=== PATIENT | female | born 1970 | race Caucasian/White ===

== ENCOUNTER 2024-10-31 09:45 | Day surgery (SDC) | payer MEDICAID, SELFPAY ==
--- NOTE | 2024-10-30 19:30 | HPE_ITS ---
Assessment and Plan Assessment and plan (1) Nuclear age-related cataract, left eye: Status: Acute Assessment and plan: Assessment: Visually significant cataract, left eye. Plan: Cataract extraction with lens implantation, left eye, followed by right eye (2) Cortical age-related cataract, left eye: Status: Acute Assessment and plan: Assessment: Visually significant cataract, left eye. Plan: Cataract extraction with lens implantation, left eye, followed by right eye (3) Nuclear age-related cataract, right eye: Status: Acute Assessment and plan: Assessment: Visually significant cataract, right eye. Plan: Cataract extraction with lens implantation, right eye (4) Cortical age-related cataract, right eye: Status: Acute Assessment and plan: Assessment: Visually significant cataract, right eye. Plan: Cataract extraction with lens implantation, right eye History of Present Illness History of Present Illness Chief Complaint: Decreased vision both eyes Narrative: The patient is a 54-year-old lady who presented with complaints of progressive decreased vision in both eyes at both distance and near. She is unable to see road signs and has significant glare from oncoming headlights at night. 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 Review of Systems All systems reviewed & are unremarkable except as noted in HPI and below PFSH All Active Problems Cortical age-related cataract, right eye (Acute) Nuclear age-related cataract, right eye (Acute) Cortical age-related cataract, left eye (Acute) Nuclear age-related cataract, left eye (Acute) Medical History Conductive hearing loss, external ear Impacted cerumen, bilateral Asthma Hyperlipidemia Depression with anxiety Plaque psoriasis Tobacco abuse Allergic rhinitis H/O chronic otitis media in childhood Surgical History History of bilateral tubal ligation H/O dilation and curettage S/P tonsillectomy and adenoidectomy Family History Father Cancer metastatic lung Mother Tobacco abuse Obesity Thyroid disease Migraines Osteoarthritis Brother Gout Son Chronic otitis media Paternal Uncle Cancer stomach Gout Maternal Uncle Diabetes Heart disease Social History Smoking/Tobacco Use Status: Current every day Tobacco Type: cigarettes Smoking packs per day: 1 Smoking cigarettes per day: 20.0 Smoking risk assessment performed?: Yes Alcohol Intake: current Alcohol Intake frequency: holidays/special occasions only Drug use: Never Substance use type: does not use Household members: spouse and children Housing: house current occupation: homemaker Pets and animals: Yes Pets and animals: cat(s) and dog(s) What is your relationship status?: Panel score (0-1 are the most socially isolated patients): 1 What type of physical activity do you participate in: walking Duration: < 15 minutes/day Frequency: daily Do you feel safe at home: Yes Do you feel safe in your relationship?: Yes Meds Allergies and Home Medications Allergies Allergy/AdvReac Type Severity Reaction Status Date / Time amoxicillin (From Augmentin) Allergy Unknown Verified 10/29/24 11:45 clavulanic acid (From Allergy Unknown Verified 10/29/24 11:45 Augmentin) sulfamethoxazole (From Allergy Unknown Verified 10/29/24 11:45 Bactrim) trimethoprim (From Bactrim) Allergy Unknown Verified 10/29/24 11:45 Seasonal Allergies Allergy Unknown Uncoded 10/29/24 11:45 Home Medications ?Medication ?Instructions ?Recorded ?Confirmed ?Type atorvastatin 10 mg tablet 10 mg PO DAILY 06/08/21 10/31/24 History citalopram 40 mg tablet 20 mg PO DAILY 06/08/21 10/31/24 History fexofenadine 180 mg tablet 180 mg PO DAILY 06/08/21 10/31/24 History (Solange Allergy) secukinumab 150 mg/mL subcutaneous 300 mg subcut Q4W 06/14/21 10/31/24 History syringe (Cosentyx 300 mg/2 Syringes () ascorbate calcium (vitamin C) 500 500 mg PO DAILY 03/21/22 10/31/24 History mg tablet cholecalciferol (vitamin D3) 25 25 mcg PO DAILY 03/21/22 10/31/24 History mcg (1,000 unit) tablet fluticasone propionate 50 1 spray intranasal DAILY 03/06/23 10/31/24 History mcg/actuation nasal spray,suspension (Flonase Allergy Relief) lisinopril 10 mg tablet 10 mg PO DAILY 09/05/23 10/31/24 History famotidine 20 mg tablet 20 mg PO DAILY 10/29/24 10/31/24 History magnesium oxide 400 mg PO DAILY 10/29/24 10/31/24 History Exam Eyes Other: Most recent ocular examination is significant for corrected visual acuity of 20/30 right eye, 20/50 left eye with significant glare disability. Intraocular pressure is 10 in both eyes. Extraocular motility is normal. Slit-lamp examination shows pupils dilating to 4.5 mm OU. Mild cortical with mild to moderate nuclear cataract are present OU. Funduscopic examination shows disc cupping of 0.5 OU with normal vessels, macula, peripheral retina and vitreous. Resp Auscultation: clear to auscultation bilaterally Cardio Rate: regular rate Rhythm: regular rhythm
--- NOTE | 2024-10-31 06:54 | W.ANESPRE ---
General Info Date of Service Date Performed: 10/31/24 Height: 5 ft 1.5 in Weight: 63.049 kg Body Mass Index (BMI): 25.8 Surgical Procedure: Operation Date: 10/31/24 12:40 Proposed Procedure Side Surgeon p Cataract Extraction with IOL Implant Left Joe Brock MD Meds Allergies and Home Medications Allergies Allergy/AdvReac Type Severity Reaction Status Date / Time amoxicillin (From Augmentin) Allergy Unknown Verified 10/29/24 11:45 clavulanic acid (From Allergy Unknown Verified 10/29/24 11:45 Augmentin) sulfamethoxazole (From Allergy Unknown Verified 10/29/24 11:45 Bactrim) trimethoprim (From Bactrim) Allergy Unknown Verified 10/29/24 11:45 Seasonal Allergies Allergy Unknown Uncoded 10/29/24 11:45 Home Medication ?Medication ?Instructions ?Recorded atorvastatin 10 mg tablet 10 mg PO DAILY 06/08/21 citalopram 40 mg tablet 20 mg PO DAILY 06/08/21 fexofenadine 180 mg tablet 180 mg PO DAILY 06/08/21 (Solange Allergy) secukinumab 150 mg/mL subcutaneous 300 mg subcut Q4W 06/14/21 syringe (Cosentyx 300 mg/2 Syringes () ascorbate calcium (vitamin C) 500 500 mg PO DAILY 03/21/22 mg tablet cholecalciferol (vitamin D3) 25 25 mcg PO DAILY 03/21/22 mcg (1,000 unit) tablet fluticasone propionate 50 1 spray intranasal DAILY 03/06/23 mcg/actuation nasal spray,suspension (Flonase Allergy Relief) lisinopril 10 mg tablet 10 mg PO DAILY 09/05/23 famotidine 20 mg tablet 20 mg PO DAILY 10/29/24 magnesium oxide 400 mg PO DAILY 10/29/24 Current Visit Medications: Current Medications Generic Name Dose Route Start Last Admin Trade Name Freq PRN Reason Stop Dose Admin Acetaminophen 1,000 mg 10/31/24 06:00 Acetaminophen 500 Mg Tab PO 11/30/24 05:59 Q4H PRN PRN Balanced Salt Solution 500 ml 10/31/24 06:00 Balanced Salt Soln.-Plus 500 Ml Bag OP 11/30/24 05:59 DIRECTED KOURTNEY Miscellaneous Medication 0 ml 10/31/24 06:00 Prednisolone 1%, Moxifloxacin 0.5%, Bromfenac 0.09% 5.6ml Btl OS 11/30/24 05:59 DIRECTED [facility] Miscellaneous Medication 0 ml 10/31/24 06:00 Tropicam./Phenyleph. (1/2.5%) 5 Ml Btl OS 11/30/24 05:59 DIRECTED KOURTNEY Tetracaine HCl 0 ml 10/31/24 06:00 Tetracaine 0.5% 4 Ml Btl OS 11/30/24 05:59 DIRECTED [facility] PFSH Active Problems Active Problems: Problem Status Onset Code Cortical age-related cataract, right eye Acute H25.011 Nuclear age-related cataract, right eye Acute H25.11 Cortical age-related cataract, left eye Acute H25.012 Nuclear age-related cataract, left eye Acute H25.12 Medical History Medical History Conductive hearing loss, external ear Impacted cerumen, bilateral Asthma Hyperlipidemia Depression with anxiety Plaque psoriasis Tobacco abuse Allergic rhinitis H/O chronic otitis media in childhood Surgical History Surgical History History of bilateral tubal ligation H/O dilation and curettage S/P tonsillectomy and adenoidectomy Tobacco Smoking/Tobacco Use Status: Current every day Tobacco Type: cigarettes Smoking packs per day: 1 Smoking cigarettes per day: 20.0 Alcohol Alcohol Intake: current Alcohol intake frequency: holidays/special occasions only Substance Use Substance use: Never Substance use type: does not use Vital Signs and Lab Results Vital Signs Most Recent Vital Signs in EMR: Temp Pulse Resp BP Pulse Ox 35.9 C L 80 18 167/92 H 97 10/31/24 09:55 10/31/24 09:55 10/31/24 09:55 10/31/24 09:55 10/31/24 09:55 Lab Results Blood Type / Crossmatch: No Data to Display Complete Blood Count: No Data to Display Complete Metabolic Panel: No Data to Display Liver Function Panel: No Data to Display Coagulation Panel: No Data to Display Cardiac Panel: No Data to Display Arterial Blood Gas: No Data to Display Venous Blood Gas: No Data to Display Pancreas Panel: No Data to Display Thyroid Panel: No Data to Display Infectious Disease: No Data to Display Blood Cultures: No Data to Display Toxicology Panel: No Data to Display Anesthesia Assessment and Plan Anesthesia History Personal History: No History of Anesthesia Complications Family History: No Family History of Anesthesia Complications Exercise Tolerance Exercise Tolerance: Metabolic Equivalents>4 Cardiac & Pulmonary Exam Cardiac Exam: Normal S1/S2 Heart Sounds Pulmonary Exam: Clear Bilateral Breath Sounds Implantable Cardiac Device Does patient have a Pacemaker or an ICD?: No Airway Exam Known Difficult Airway: No Mallampati Class: 2 Mouth Opening: Normal (> 3cm) Thyromental Distance: Greater than 3 cm Neck Range of Motion: Full ROM Neck Circumference: Normal Teeth Condition: Normal Dentition ASA Classification ASA Score: ASA 2 Emergency Case?: No NPO Status NPO Status: NPO Clears >2 hours, Solids >8 hours Anesthesia Plan Resuscitation Status: Full Code Anesthesia Technique: MAC Anesthesia Airway Planned: Natural Airway Monitors Used: Standard Monitors Preoperative Comments:: 54 yo female for cataract removal. Would like MKO. Sig PMHx: HTN (lisinopril), asthma (with colds), GERD (Pepcid, well controlled) plaque psoriasis (cosentyx), depression/anxiety, smoker, occ EtOH.
[2024-10-31 09:40] VITALS: BMI 25.8
[2024-10-31 09:55] VITALS: BP 167/92; PULSE 80; RESP 18; TEMP 35.9; O2SAT 97
[2024-10-31] MEDS: Tropicam./Phenyleph. (1/2.5%) 5 ML BTL OS ×3 (10:13→10:23)
[2024-10-31] MEDS: Phenylephrine/Lidocaine (15/10) MG/ML 1 ML VIAL (11:13)
[2024-10-31] MEDS: Duovisc Viscoelastic System EACH 1 EACH (11:13)
[2024-10-31] MEDS: Povidone-Iodine Ophth 30 ML BTL (11:14)
[2024-10-31] MEDS: Lidocaine 1% Pres-Free 5 ML VIAL (11:14)
[2024-10-31] MEDS: Balanced Salt Soln.-PLUS 500 ML BAG OP (11:15)
[2024-10-31] MEDS: Prednisolone 1%, Moxifloxacin 0.5%, Bromfenac 0.09% 5.6ML BTL OS (11:16)
[2024-10-31] MEDS: Tetracaine 0.5% 4 ML BTL OS (11:16)
[2024-10-31 11:31] VITALS: BP 174/94; PULSE 67; RESP 16; TEMP 36.1; O2SAT 99
--- NOTE | 2024-10-31 11:32 | W.PM.DSUDISC ---
Date of service: 10/31/24 Discharge Plan Disposition Patient Disposition: Home Discharge Details Attending Provider: Joe Brock Primary Care Provider: Renzo Bright Home Meds and New Rx's Prescriptions: No Action ascorbate calcium (vitamin C) 500 mg tablet 500 mg PO DAILY cholecalciferol (vitamin D3) 25 mcg (1,000 unit) tablet 25 mcg PO DAILY lisinopril 10 mg tablet 10 mg PO DAILY atorvastatin 10 mg tablet 10 mg PO DAILY fexofenadine [Solange Allergy] 180 mg tablet 180 mg PO DAILY citalopram 40 mg tablet 20 mg PO DAILY Cosentyx (2 Syringes) 150 mg/mL syringe 300 mg subcut Q4W Rx Instructions: start 4 wks after last weekly dose;inject [id number] doses each in different thigh/upper arm/abdominal areas fluticasone propionate [Flonase Allergy Relief] 50 mcg/actuation spray,suspension 1 spray intranasal DAILY Rx Instructions: administer into each nostril famotidine 20 mg tablet 20 mg PO DAILY magnesium oxide 400 mg magnesium capsule 400 mg PO DAILY Discharge Instructions Stand Alone Forms: [facility] Post-Op Cataract[facility] (DSU) Discharge Orders Discharge Orders: Discharge Order (Routine); Ordered 10/31/24 Ordered By: Joe Brock DS: Diagnosis Discharge Diagnosis (1) Nuclear age-related cataract, left eye: Status: Resolved (2) Cortical age-related cataract, left eye: Status: Resolved
--- NOTE | 2024-10-31 11:33 | W.PM.OP ---
Operative Note Operative Note PRE-OP DIAGNOSIS: Nuclear/cortical cataract, left eye POST-OP DIAGNOSIS: same PROCEDURE: Cataract extraction using phacoemulsification with intraocular lens implant, left eye SURGEON: Joe Brock ANESTHESIA TYPE: Local By Surgeon and MAC Refer to Anesthesia Record PATHOLOGY: none sent COMPLICATIONS: None Patient was transported to: same day Patient's condition: stable Implants: Scottie and Scottie Tecnis Eyhance [id number] Indications: Progressive decreased vision due to cataract, left eye Procedure Description: CATARACT SURGERY OPERATIVE REPORT PREOPERATIVE DIAGNOSIS: 1. Nuclear/cortical cataract, left eye POSTOPERATIVE DIAGNOSIS: Same OPERATION: 1. Cataract extraction using phacoemulsification with posterior chamber intraocular lens implant, left eye. IOL: IOL Track Patrol/Model: Scottie & Scottie Tecnis Eyhance [id number] IOL Power: + 23.5 diopters IOL Serial Number: [id number] Optic Diameter: 6.0 mm Haptic/Overall Diameter: 13.0 mm PHACO INFO: Nestor Centurion Vision System with OZil and Active Fluidics Cumulative Dispersed Energy (CDE): 2.31 seconds SURGEON: Joe Brock MD, DAYNE ANESTHESIA: Monitored [facility] [place] [place] with local sub-tenon's anesthetic infiltration COMPLICATIONS: None SPECIMENS: None INDICATIONS FOR PROCEDURE: The patient is a 54-year-old lady with history of diminished visual acuity in both eyes secondary to the development of bilateral nuclear/cortical cataract. She is significantly symptomatic that she desires cataract surgery and attempt to improve and maximize her vision. See office notes for detailed information. PROCEDURE: The correct surgical eye was identified and marked as the left eye and the pupil was dilated in the preoperative area using mydriatics and cycloplegics. The dilated pupil size was 6.0 mm. Oral sedation was administered in the form of an Imprimis MKO Melt (midazolam 3mg/ketamine 25mg/ondansetron 2mg). The patient was brought to the operating room where cardiopulmonary monitoring was instituted and surgical time-out was performed, confirming the correct operative eye and IOL power. Topical anesthesia was administered and ophthalmic povidone-iodine 5% was instilled into the conjunctival fornices. The srinivasan-ocular area was prepped with Betadine 10% solution and draped in the usual sterile fashion for intraocular surgery, including an aperture drape. A Tegaderm transparent film dressing was cut in half and used to cover the lashes and lid margins. Care was taken to sequester the lashes and lid margins under the Tegaderm dressing. A lid speculum was placed between the lids of the operative eye and the Nestor LuxOR Revalia operating microscope was maneuvered into position. Deneen scissors were then used to make a conjunctival buttonhole approximately 6mm posterior to the limbus in the inferonasal quadrant. Blunt dissection was carried out to expose bare sclera, and a blunt-tipped sub-tenon?s anesthesia cannula was introduced and passed posteriorly along the globe where non-preserved plain lidocaine was injected into posterior sub-Tenon?s space. A sideport knife was used to make a paracentesis port. Intraocular phenylephrine/lidocaine was injected into the anterior chamber.. The anterior chamber was filled with viscoelastic. A keratome knife was used to construct a 2-plane near-clear corneal tunnel extending 2.0mm into clear cornea. A flap was raised on the anterior capsule and capsulorhexis forceps were used to complete a continuous curvilinear capsulorhexis of 5.0 mm. Balanced salt solution was then used to perform cortical cleaving hydrodissection and nuclear hydrodelineation until the lens could be freely rotated within the capsular bag. The lens nucleus was then disassembled and removed within the capsular bag and iris plane using phacoemulsification. Residual cortical material was removed using the irrigation/aspiration handpiece. The posterior capsule was carefully polished to remove as much residual lens epithelial cells as safely possible. The capsular bag was then inflated and the anterior chamber deepened with viscoelastic. The lens implant described above was inserted into the capsular bag using the Scottie and Scottie Simplicity pre-loaded injector. A Kuglen hook was used to dial the IOL into position. Residual viscoelastic was then removed first from posterior to the IOL, then from the anterior chamber using the I/A handpiece. The lens implant was noted to center nicely within the capsular bag. The incisions were stromally hydrated, and the anterior chamber was reformed using BSS. Then 0.5cc of moxifloxacin 1.0mg/ml were injected into the capsular bag and anterior chamber. The incisions were checked with a Weck spear and found to be secure. Several drops of ophthalmic povidone-iodine 5% were then applied to the eye followed by two drops of Imprimis combination prednisolone/moxifloxacin/nepafenac solution. The drapes were removed and a clear plastic protective eye shield was placed over the eye. The patient was then returned to Same Day Surgery in stable condition. Date of Procedure: 10/31/24
[2024-10-31 11:51] VITALS: BP 171/99; PULSE 78; RESP 16; TEMP 36.4; O2SAT 97
--- NOTE | 2024-10-31 12:12 | W.ANESPOSTOP ---
Postoperative Evaluation Date, Time and Location Date Performed: 10/31/24 Time Performed: 12:12 Patient Location: Day Surgery Unit Vital Signs Most Recent Imported Vital Signs: Most Recent Vital Signs Temp Pulse Resp BP Pulse Ox 36.4 C L 78 16 171/99 H 97 10/31/24 11:51 10/31/24 11:51 10/31/24 11:51 10/31/24 11:51 10/31/24 11:51 Pain Score Most Recent Pain Score: Most Recent Pain Score Pain Level 0 10/31/24 11:51 Assessment Mental Status: Awake (Alert & Oriented to Patient Baseline) Airway and Respiratory Function: Patent airway with normal (patient baseline) respiratory exam Cardiovascular Function: Hemodynamically Stable Hydration Status: Adequately Hydrated Nausea & Vomiting: No Nausea or Vomiting Pain: Pt. Denies Any Pain Peripheral Nerve Block: Patient did not receive a nerve block
== END 2024-10-31 11:54 | disposition home or self-care (01) ==
LOC: SUR 09:45
PROVIDERS: PCP Family Medicine; Visit Provider Ophthalmology
PROC: (CPT 66984; principal; 2024-10-31 12:30)
DX: H25.12 Age-related nuclear cataract, left eye (principal); H25.012 Cortical age-related cataract, left eye
CPT/HCPCS: 66984; 00123; V2632; J2003

== ENCOUNTER 2024-11-28 13:01 | Day surgery (SDC) | payer MEDICAID, SELFPAY ==
[2024-11-28 13:18] VITALS: BP 169/90; PULSE 72; RESP 16; TEMP 35.7; O2SAT 98
[2024-11-28] MEDS: Tropicam./Phenyleph. (1/2.5%) 5 ML BTL OD ×3 (13:29→13:39)
--- NOTE | 2024-11-28 13:52 | W.ANESPRE ---
General Info Date of Service Date Performed: 11/28/24 Height: 5 ft 1.5 in Weight: 60.2 kg Body Mass Index (BMI): 24.6 Surgical Procedure: Operation Date: 11/28/24 15:40 Proposed Procedure Side Surgeon p Cataract Extraction with IOL Implant Right Joe Brock MD Meds Allergies and Home Medications Allergies Allergy/AdvReac Type Severity Reaction Status Date / Time amoxicillin (From Augmentin) Allergy Unknown Verified 11/28/24 13:24 clavulanic acid (From Allergy Unknown Verified 11/28/24 13:24 Augmentin) sulfamethoxazole (From Allergy Unknown Verified 11/28/24 13:24 Bactrim) trimethoprim (From Bactrim) Allergy Unknown Verified 11/28/24 13:24 Seasonal Allergies Allergy Unknown Uncoded 11/28/24 13:24 Home Medication ?Medication ?Instructions ?Recorded atorvastatin 10 mg tablet 10 mg PO DAILY 06/08/21 citalopram 40 mg tablet 20 mg PO DAILY 06/08/21 fexofenadine 180 mg tablet 180 mg PO DAILY 06/08/21 (Solange Allergy) secukinumab 150 mg/mL subcutaneous 300 mg subcut Q4W 06/14/21 syringe (Cosentyx 300 mg/2 Syringes () ascorbate calcium (vitamin C) 500 500 mg PO DAILY 03/21/22 mg tablet cholecalciferol (vitamin D3) 25 25 mcg PO DAILY 03/21/22 mcg (1,000 unit) tablet fluticasone propionate 50 1 spray intranasal DAILY 03/06/23 mcg/actuation nasal spray,suspension (Flonase Allergy Relief) lisinopril 10 mg tablet 10 mg PO DAILY 09/05/23 famotidine 20 mg tablet 20 mg PO DAILY 10/29/24 magnesium oxide 400 mg PO DAILY 10/29/24 Current Visit Medications: Current Medications Generic Name Dose Route Start Last Admin Trade Name Freq PRN Reason Stop Dose Admin Acetaminophen 1,000 mg 11/28/24 06:00 Acetaminophen 500 Mg Tab PO 12/28/24 05:59 Q4H PRN PRN Balanced Salt Solution 500 ml 11/28/24 06:00 Balanced Salt Soln.-Plus 500 Ml Bag OP 12/28/24 05:59 DIRECTED KOURTNEY Miscellaneous Medication 0 ml 11/28/24 06:00 Prednisolone 1%, Moxifloxacin 0.5%, Bromfenac 0.09% 5.6ml Btl OD 12/28/24 05:59 DIRECTED KOURTNEY Miscellaneous Medication 0 ml 11/28/24 06:00 11/28/24 13:39 Tropicam./Phenyleph. (1/2.5%) 5 Ml Btl OD 12/28/24 05:59 1 drp DIRECTED KOURTNEY Administration Tetracaine HCl 0 ml 11/28/24 06:00 Tetracaine 0.5% 4 Ml Btl OD 12/28/24 05:59 DIRECTED K[facility] PFSH Active Problems Active Problems: Problem Status Onset Code Cortical age-related cataract, right eye Acute H25.011 Nuclear age-related cataract, right eye Acute H25.11 Cortical age-related cataract, left eye Resolved H25.012 Nuclear age-related cataract, left eye Resolved H25.12 Medical History Medical History Conductive hearing loss, external ear Impacted cerumen, bilateral Asthma Hyperlipidemia Depression with anxiety Plaque psoriasis Tobacco abuse Allergic rhinitis H/O chronic otitis media in childhood Surgical History Surgical History History of bilateral tubal ligation H/O dilation and curettage S/P tonsillectomy and adenoidectomy Tobacco Smoking/Tobacco Use Status: Current every day Tobacco Type: cigarettes Smoking packs per day: 1 Smoking cigarettes per day: 20.0 Alcohol Alcohol Intake: current Alcohol intake frequency: holidays/special occasions only Substance Use Substance use: Never Substance use type: does not use Vital Signs and Lab Results Vital Signs Most Recent Vital Signs in EMR: Most Recent Vital Signs Temp Pulse Resp BP Pulse Ox 35.7 C L 72 16 169/90 H 98 11/28/24 13:18 11/28/24 13:18 11/28/24 13:18 11/28/24 13:18 11/28/24 13:18 Lab Results Blood Type / Crossmatch: No Data to Display Complete Blood Count: No Data to Display Complete Metabolic Panel: No Data to Display Liver Function Panel: No Data to Display Coagulation Panel: No Data to Display Cardiac Panel: No Data to Display Arterial Blood Gas: No Data to Display Venous Blood Gas: No Data to Display Pancreas Panel: No Data to Display Thyroid Panel: No Data to Display Infectious Disease: No Data to Display Blood Cultures: No Data to Display Toxicology Panel: No Data to Display Anesthesia Assessment and Plan Anesthesia History Personal History: No History of Anesthesia Complications Family History: No Family History of Anesthesia Complications Exercise Tolerance Exercise Tolerance: Metabolic Equivalents>4 Cardiac & Pulmonary Exam Cardiac Exam: Normal S1/S2 Heart Sounds Pulmonary Exam: Clear Bilateral Breath Sounds Implantable Cardiac Device Does patient have a Pacemaker or an ICD?: No Airway Exam Known Difficult Airway: No Mallampati Class: 2 Mouth Opening: Normal (> 3cm) Thyromental Distance: Greater than 3 cm Neck Range of Motion: Full ROM Neck Circumference: Normal Teeth Condition: Normal Dentition ASA Classification ASA Score: ASA 2 Emergency Case?: No NPO Status NPO Status: NPO Clears >2 hours, Solids >8 hours Anesthesia Plan Resuscitation Status: Full Code Anesthesia Technique: MAC Anesthesia Airway Planned: Natural Airway Monitors Used: Standard Monitors Preoperative Comments:: 54 yo female for cataract removal. Would like MKO again. Sig PMHx: HTN (lisinopril), asthma (with colds), GERD (Pepcid, well controlled) plaque psoriasis (cosentyx), depression/anxiety, smoker, occ EtOH.
[2024-11-28] MEDS: Povidone-Iodine Ophth 30 ML BTL (14:12)
[2024-11-28] MEDS: Tetracaine 0.5% 4 ML BTL OD (14:13)
[2024-11-28 14:14] VITALS: BMI 24.6
[2024-11-28] MEDS: Phenylephrine/Lidocaine (15/10) MG/ML 1 ML VIAL (14:19)
[2024-11-28] MEDS: Lidocaine 1% Pres-Free 5 ML VIAL (14:19)
[2024-11-28] MEDS: Duovisc Viscoelastic System EACH 1 EACH (14:20)
[2024-11-28] MEDS: Balanced Salt Soln.-PLUS 500 ML BAG OP (14:20)
[2024-11-28] MEDS: Prednisolone 1%, Moxifloxacin 0.5%, Bromfenac 0.09% 5.6ML BTL OD (14:30)
[2024-11-28 14:37] VITALS: BP 181/92; PULSE 67; RESP 16; TEMP 36.1; O2SAT 99
--- NOTE | 2024-11-28 14:38 | ROE_ITS ---
Operative Note Operative Note PRE-OP DIAGNOSIS: Nuclear/cortical cataract, right eye POST-OP DIAGNOSIS: same PROCEDURE: Cataract extraction using phacoemulsification with intraocular lens implant, right eye SURGEON: Joe Brock ANESTHESIA TYPE: Local By Surgeon and MAC Refer to Anesthesia Record ESTIMATED BLOOD LOSS: 0 PATHOLOGY: none sent COMPLICATIONS: None Patient was transported to: same day Patient's condition: stable Implants: Scottie [employer] Scottie Tecnis Eyhance [id number] Indications: Progressive visual loss due to cataract, right eye Procedure Description: CATARACT SURGERY OPERATIVE REPORT PREOPERATIVE DIAGNOSIS: 1. Nuclear/cortical cataract, right eye POSTOPERATIVE DIAGNOSIS: Same OPERATION: 1. Cataract extraction using phacoemulsification with posterior chamber intraocular lens implant, right eye. IOL: IOL [employer] Sales Representative/Model: Scottie & Scottie Tecnis Eyhance DIB00 IOL Power: + 23.5 diopters IOL Serial Number: [id number] Optic Diameter: 6.0mm Haptic/Overall Diameter: 13.0mm PHACO INFO: Nestor [employer] Kateurion Vision System with OZil and Active Fluidics Cumulative Dispersed Energy (CDE): 2.06 seconds SURGEON: Joe Brock MD, DAYNE ANESTHESIA: Monitored Anesthesia Care (MAC), with local sub-tenon's anesthetic infiltration COMPLICATIONS: None SPECIMENS: None INDICATIONS FOR PROCEDURE: The patient is a 54-year-old lady with history of diminished visual acuity in both eyes secondary to the development of bilateral nuclear/cortical cataract. She has already undergone cataract surgery in the left eye and is doing well postoperatively. She now presents for cataract surgery in the right eye. See office notes for detailed information. PROCEDURE: The correct surgical eye was identified and marked as the right eye and the pupil was dilated in the preoperative area using mydriatics and cycloplegics. The dilated pupil size was 5.5 mm. Oral sedation was administered in the form of an Imprimis MKO Melt (midazolam 3mg/ketamine 25mg/ondansetron 2mg). The patient was brought to the operating room where cardiopulmonary monitoring was instituted and surgical time-out was performed, confirming the correct operative eye and IOL power. Topical anesthesia was administered and ophthalmic povidone-iodine 5% was instilled into the conjunctival fornices. The srinivasan-ocular area was prepped with Betadine 10% solution and draped in the usual sterile fashion for intraocular surgery, including an aperture drape. A Tegaderm transparent film dressing was cut in half and used to cover the lashes and lid margins. Care was taken to sequester the lashes and lid margins under the Tegaderm dressing. A lid speculum was placed between the lids of the operative eye and the Nestor LuxOR Revalia operating microscope was maneuvered into position. Deneen scissors were then used to make a conjunctival buttonhole approximately 6mm posterior to the limbus in the inferonasal quadrant. Blunt dissection was carried out to expose bare sclera, and a blunt-tipped sub-tenon?s anesthesia cannula was introduced and passed posteriorly along the globe where non- preserved plain lidocaine was injected into posterior sub-Tenon?s space. A sideport knife was used to make a paracentesis port. Intraocular phenylephrine/lidocaine was injected into the anterior chamber. The anterior chamber was filled with viscoelastic. A keratome knife was used to construct a 2-plane clear corneal tunnel extending 2.0mm into clear cornea. A flap was raised on the anterior capsule and capsulorhexis forceps were used to complete a continuous curvilinear capsulorhexis of 5.0 mm. Balanced salt solution was then used to perform cortical cleaving hydrodissection and nuclear hydrodelineation until the lens could be freely rotated within the capsular bag. The lens nucleus was then disassembled and removed within the capsular bag and iris plane using phacoemulsification. Residual cortical material was removed using the I/A handpiece. The posterior capsule was carefully polished to remove as much residual lens epithelial cells as safely possible. The capsular bag was then inflated and the anterior chamber deepened with cohesive viscoelastic. The lens implant described above was inserted into the capsular bag using the Scottie [employer] Ezra Simplicity pre- loaded injector. A Kuglen hook was used to dial the IOL into position. Residual viscoelastic was then removed first from posterior to the IOL, then from the anterior chamber using the I/A handpiece. The lens implant was noted t o center nicely within the capsular bag. The incisions were stromally hydrated, and the anterior chamber was reformed using BSS. Then 0.5cc of moxifloxacin 1.0mg/ml were injected into the capsular bag and anterior chamber. The incisions were checked with a Weck spear and found to be secure. Several drops of ophthalmic povidone-iodine 5% were then applied to the eye followed by two drops ocombination steroid/NSAID/antibiotic solution. The drapes were removed and a clear plastic protective eye shield was placed over the eye. The patient was then returned to [facility] Day Surgery in stable condition. Date of Procedure: 11/28/24
--- NOTE | 2024-11-28 14:38 | W.PM.DSUDISC ---
Date of service: 11/28/24 Discharge Plan Disposition Patient Disposition: Home Discharge Details Attending Provider: Joe Brock Primary Care Provider: Renzo Bright Home Meds and New Rx's Prescriptions: No Action ascorbate calcium (vitamin C) 500 mg tablet 500 mg PO DAILY cholecalciferol (vitamin D3) 25 mcg (1,000 unit) tablet 25 mcg PO DAILY lisinopril 10 mg tablet 10 mg PO DAILY atorvastatin 10 mg tablet 10 mg PO DAILY fexofenadine [Solange Allergy] 180 mg tablet 180 mg PO DAILY citalopram 40 mg tablet 20 mg PO DAILY Cosentyx (2 Syringes) 150 mg/mL syringe 300 mg subcut Q4W Rx Instructions: start 4 wks after last weekly dose;inject [id number] doses each in different thigh/upper arm/abdominal areas fluticasone propionate [Flonase Allergy Relief] 50 mcg/actuation spray,suspension 1 spray intranasal DAILY Rx Instructions: administer into each nostril famotidine 20 mg tablet 20 mg PO DAILY magnesium oxide 400 mg magnesium capsule 400 mg PO DAILY Discharge Instructions Stand Alone Forms: [facility] Post-Op Cataract[facility] ([facility]) Discharge Orders Discharge Orders: Discharge Order (Routine); Ordered 11/28/24 Ordered By: Joe Brock DS: Diagnosis Discharge Diagnosis (1) Cortical age-related cataract, right eye: Status: Resolved (2) Nuclear age-related cataract, right eye: Status: Resolved
--- NOTE | 2024-11-28 15:03 | W.ANESPOSTOP ---
Postoperative Evaluation Date, Time and Location Date Performed: 11/28/24 Time Performed: 15:03 Patient Location: Day Surgery Unit Vital Signs Most Recent Imported Vital Signs: Most Recent Vital Signs Temp Pulse Resp BP Pulse Ox 35.7 C L 72 16 169/90 H 98 11/28/24 13:18 11/28/24 13:18 11/28/24 13:18 11/28/24 13:18 11/28/24 13:18 Pain Score Most Recent Pain Score: Most Recent Pain Score Pain Level 0 11/28/24 13:18 Assessment Mental Status: Awake (Alert & Oriented to Patient Baseline) Airway and Respiratory Function: Patent airway with normal (patient baseline) respiratory exam Cardiovascular Function: Hemodynamically Stable Hydration Status: Adequately Hydrated Nausea & Vomiting: No Nausea or Vomiting Pain: Pt. Denies Any Pain Peripheral Nerve Block: Other (Local by Dr. Brock)
== END 2024-11-28 15:20 | disposition home or self-care (01) ==
LOC: SUR 13:01
PROVIDERS: PCP Family Medicine; Visit Provider Ophthalmology
PROC: (CPT 66984; principal; 2024-11-28 15:30)
DX: H25.011 Cortical age-related cataract, right eye (principal); H25.11 Age-related nuclear cataract, right eye; Z98.42 Cataract extraction status, left eye
CPT/HCPCS: 66984; 00123; V2632; J2003